=== PATIENT | male | born 1945 | race Caucasian/White ===

== ENCOUNTER → 2023-07-20 09:53 | Outpatient (REF) | payer MEDICARE, BC, SELFPAY ==
[2023-07-20 10:07] LABS: % Basophils 0.3 % (0-2); % Eosinophils 2.3 % (0-6); % Immature Granulocytes 0.1 % (0-0.5); % Lymphocytes 18.6 % (20.5-51.1); % Monocytes 5.1 % (1.7-9.3); % Neutrophils 73.6 % (42.2-75.2); Absolute Eosinophils 0.2 10^3/uL (0-0.7); Absolute Lymphocytes 1.4 10^3/uL (1.2-3.4); Absolute Monocytes 0.4 10^3/uL (0.1-0.6); Absolute Neutrophils 5.3 10^3/uL (1.4-6.5); Hematocrit 44.7 % (39.0-52.0); Hemoglobin 15.1 g/dL (13.0-18.0); Mean Corp Hgb Conc. 33.8 g/dL (33.0-37.0); Mean Corpuscular Hgb 32.6 pg (27.0-31.0); Mean Corpuscular Volume 96.5 fL (80.0-94.0); Mean Platelet Volume 11.4 fL (7.4-10.4); Platelet Count 173 10^3/uL (130-400); Red Blood Cell Count 4.63 10^6/uL (4.70-6.10); White Blood Cell Count 7.3 10^3/uL (4.8-10.8)
[2023-07-20 11:43] LABS: Iron 126 ug/dl (49-181)
[2023-07-20 11:53] LABS: Percent Saturation 39 % (20-50); Total Iron Binding Capacity 321 ug/dl (261-462)
[2023-07-20 12:19] LABS: Ferritin 59.4 ng/ml (17.9-464.0)
== END ==
LOC: OIDL 09:53
PROVIDERS: ATTENDING PHYSICIAN Internal Medicine Hematology & Oncology
DX: E83.110 Hereditary hemochromatosis (principal); E83.119 Hemochromatosis, unspecified
CPT/HCPCS: 36415; 82728; 83540; 83550; 85025

== ENCOUNTER 2023-08-02 09:12 | Outpatient (RCR) | payer MEDICARE, BC, SELFPAY ==
[2023-08-02 09:39] VITALS: BP 147/77
[2023-08-02 09:57] VITALS: BP 136/79
[2023-08-02 10:00] VITALS: BP 152/74
== END 2023-08-03 09:27 | disposition home or self-care (01) ==
LOC: OID 09:12
PROVIDERS: ATTENDING PHYSICIAN Internal Medicine Hematology & Oncology; FAMILY PHYSICIAN Internal Medicine
DX: E83.110 Hereditary hemochromatosis (principal)
CPT/HCPCS: 99195

== ENCOUNTER → 2023-10-12 10:00 | Outpatient (REF) | payer MEDICARE, BC, SELFPAY ==
[2023-10-12 10:12] LABS: % Basophils 0.4 % (0-2); % Eosinophils 1.5 % (0-6); % Immature Granulocytes 0.1 % (0-0.5); % Lymphocytes 22.5 % (20.5-51.1); % Neutrophils 66.5 % (42.2-75.2); Absolute Eosinophils 0.1 10^3/uL (0-0.7); Absolute Lymphocytes 1.6 10^3/uL (1.2-3.4); Absolute Monocytes 0.7 10^3/uL (0.1-0.6); Absolute Neutrophils 4.8 10^3/uL (1.4-6.5); Hematocrit 44.8 % (39.0-52.0); Hemoglobin 14.9 g/dL (13.0-18.0); Mean Corp Hgb Conc. 33.3 g/dL (33.0-37.0); Mean Corpuscular Hgb 32.4 pg (27.0-31.0); Mean Corpuscular Volume 97.4 fL (80.0-94.0); Mean Platelet Volume 11.2 fL (7.4-10.4); Platelet Count 190 10^3/uL (130-400); White Blood Cell Count 7.2 10^3/uL (4.8-10.8)
[2023-10-12 11:07] LABS: Iron 135 ug/dl (49-181)
[2023-10-12 11:16] LABS: Percent Saturation 42 % (20-50); Total Iron Binding Capacity 316 ug/dl (261-462)
[2023-10-12 11:41] LABS: Ferritin 68.4 ng/ml (17.9-464.0)
== END ==
LOC: OIDL 10:00
PROVIDERS: ATTENDING PHYSICIAN Internal Medicine Hematology & Oncology; FAMILY PHYSICIAN Internal Medicine
DX: E83.110 Hereditary hemochromatosis (principal); E83.119 Hemochromatosis, unspecified; K80.20 Calculus of gallbladder without cholecystitis without obstruction
CPT/HCPCS: 36415; 82728; 83540; 83550; 85025

== ENCOUNTER 2023-10-25 09:16 | Outpatient (RCR) | payer MEDICARE, BC, SELFPAY ==
[2023-10-25 09:26] VITALS: BP 160/85
[2023-10-25 10:12] VITALS: BP 136/76
[2023-10-25 10:14] VITALS: BP 121/89
== END 2023-10-26 09:23 | disposition home or self-care (01) ==
LOC: OID 09:16
PROVIDERS: ATTENDING PHYSICIAN Internal Medicine Hematology & Oncology; FAMILY PHYSICIAN Internal Medicine
DX: E83.110 Hereditary hemochromatosis (principal)
CPT/HCPCS: 99195

== ENCOUNTER → 2023-11-22 14:02 | Outpatient (REF) | payer MEDICARE, BC, SELFPAY | LOC: HWRCS 14:02 | PROVIDERS: ATTENDING PHYSICIAN Internal Medicine; FAMILY PHYSICIAN Internal Medicine | DX: R06.02 Shortness of breath (principal) | CPT/HCPCS: 93306 ==

== ENCOUNTER → 2023-11-23 09:20 | Outpatient (REF) | payer MEDICARE, BC, SELFPAY ==
[2023-11-23 13:54] LABS: ALT (SGPT) 22 U/L (0-50); AST (SGOT) 24 U/L (17-59); Albumin 4.3 g/dl (3.5-5.0); Alkaline Phosphatase 85 U/L (38-126); Blood Urea Nitrogen 20 mg/dl (9-20); Carbon Dioxide 25 mmol/L (22-30); Chloride 107 mmol/L (98-107); Glucose 90 mg/dl (70-99); Potassium 4.1 mmol/L (3.5-5.1); Sodium 141 mmol/L (135-145); Total Bilirubin 0.5 mg/dl (0.2-1.3); Total Protein 7.1 g/dl (6.3-8.2); eGFR > 60.00
[2023-11-24 10:54] LABS: H. pylori Breath Test Negative (Negative)
== END ==
LOC: REG 09:20
PROVIDERS: ATTENDING PHYSICIAN Internal Medicine Gastroenterology
DX: R19.4 Change in bowel habit (principal); E83.119 Hemochromatosis, unspecified; A04.8 Other specified bacterial intestinal infections
CPT/HCPCS: 36415; 74018; 80053; 83013

== ENCOUNTER → 2023-11-29 09:18 | Outpatient (REF) | payer MEDICARE, BC, SELFPAY ==
[2023-12-01 00:31] LABS: H. pylori Antigen, Fecal Negative (Negative)
== END ==
LOC: REG 09:18
PROVIDERS: ATTENDING PHYSICIAN Internal Medicine Gastroenterology; FAMILY PHYSICIAN Internal Medicine
DX: E83.119 Hemochromatosis, unspecified (principal); A04.8 Other specified bacterial intestinal infections
CPT/HCPCS: 36415; 87338

== ENCOUNTER → 2024-01-11 09:57 | Outpatient (REF) | payer MEDICARE, BC, SELFPAY ==
[2024-01-11 10:46] LABS: % Basophils 0.6 % (0-2); % Eosinophils 3.5 % (0-6); % Immature Granulocytes 0.2 % (0-0.5); % Lymphocytes 20.2 % (20.5-51.1); % Monocytes 6.8 % (1.7-9.3); % Neutrophils 68.7 % (42.2-75.2); Absolute Eosinophils 0.2 10^3/uL (0-0.7); Absolute Lymphocytes 1.3 10^3/uL (1.2-3.4); Absolute Monocytes 0.4 10^3/uL (0.1-0.6); Absolute Neutrophils 4.3 10^3/uL (1.4-6.5); Hematocrit 44.3 % (39.0-52.0); Hemoglobin 15.1 g/dL (13.0-18.0); Mean Corp Hgb Conc. 34.1 g/dL (33.0-37.0); Mean Corpuscular Hgb 32.8 pg (27.0-31.0); Mean Corpuscular Volume 96.1 fL (80.0-94.0); Mean Platelet Volume 11.3 fL (7.4-10.4); Platelet Count 163 10^3/uL (130-400); Red Blood Cell Count 4.61 10^6/uL (4.70-6.10); Red Cell Dist. Width 12.8 % (11.5-14.5); White Blood Cell Count 6.3 10^3/uL (4.8-10.8)
[2024-01-11 12:07] LABS: Erythrocyte Sed Rate 12 mm/hour (0-20)
[2024-01-11 12:11] LABS: Urine Albumin Negative (Neg - Trace); Urine Bilirubin Negative (Negative); Urine Character Clear (Clear); Urine Color Yellow; Urine Glucose Negative (Negative); Urine Ketone Negative (Negative); Urine Leukocyte Negative (Negative); Urine Nitrite Negative (Negative); Urine Occult Blood Negative (Negative); Urine Specific Gravity 1.015 (<1.030); Urine Urobilinogen Negative (Neg - 1+)
[2024-01-11 13:06] LABS: C-Reactive Protein < 5.00 mg/L (0.0-10.00)
[2024-01-11 13:23] LABS: Vitamin D, 25-OH*** 74.4 ng/mL (30-80)
[2024-01-11 13:26] LABS: Glycohemoglobin (HgbA1c) 5.6 % (4.0-5.6)
[2024-01-11 13:37] LABS: TSH Reflex To Free T4 1.94 uIU/ml (0.47-4.68)
[2024-01-11 13:41] LABS: Ferritin 68.5 ng/ml (17.9-464.0)
[2024-01-11 13:56] LABS: Vitamin B12 532 pg/ml (239-931)
[2024-01-11 17:31] LABS: ALT (SGPT) 21 U/L (0-50); Chloride 107 mmol/L (98-107); Sodium 139 mmol/L (135-145)
[2024-01-11 20:34] LABS: AST (SGOT) 26 U/L (17-59); Albumin 4.5 g/dl (3.5-5.0); Alkaline Phosphatase 86 U/L (38-126); Blood Urea Nitrogen 21 mg/dl (9-20); Calcium 10.1 mg/dl (8.4-10.2); Carbon Dioxide 19 mmol/L (22-30); Glucose 85 mg/dl (70-99); HDL Cholesterol 47 mg/dl; Iron 131 ug/dl (49-181); LDL Cholesterol, Calculated 106 mg/dl; Magnesium 2.1 mg/dl (1.6-2.3); Potassium 4.3 mmol/L (3.5-5.1); Total Bilirubin 0.5 mg/dl (0.2-1.3); Total Cholesterol 168 mg/dl (50-199); Total Protein 7.1 g/dl (6.3-8.2); Triglyceride 76 mg/dl (10-149); Very Low Density Lipoprotein 15 mg/dl (0-30); eGFR > 60.00
[2024-01-11 20:44] LABS: Percent Saturation 43 % (20-50); Total Iron Binding Capacity 302 ug/dl (261-462)
[2024-01-14 07:05] LABS: Magnesium, RBC's Result 5.7 mg/dL (3.6-7.5)
== END ==
LOC: OIDL 09:57
PROVIDERS: ATTENDING PHYSICIAN Internal Medicine Hematology & Oncology; OTHER PHYSICIAN Internal Medicine
DX: E83.110 Hereditary hemochromatosis (principal); E83.119 Hemochromatosis, unspecified; K80.20 Calculus of gallbladder without cholecystitis without obstruction; E11.9 Type 2 diabetes mellitus without complications; D51.8 Other vitamin B12 deficiency anemias; E55.9 Vitamin D deficiency, unspecified
CPT/HCPCS: 36415; 80053; 80061; 81003; 82306; 82607; 82728; 83036; 83540; 83550; 83735; 84443; 85025; 85652; 86140

== ENCOUNTER 2024-01-30 10:01 | Outpatient (RCR) | payer MEDICARE, BC, SELFPAY ==
[2024-01-23 09:40] VITALS: BP 147/75
--- NOTE | 2024-01-23 10:17 | PTCARENOTE ---
Phlebotomy held and rescheduled due to unsuccessful attempts x3, two by Radha Brandon RN and one by Shantelle Dey RN. Encouraged patient to drink excess fluids and eat a full meal prior to next attempt. Patient verbalized understanding. Patient
said will have to call and reschedule after looking at calendar.
[2024-01-30 10:15] VITALS: BP 153/78
[2024-01-30 10:25] VITALS: BP 160/81
[2024-01-30 10:30] VITALS: BP 150/89
== END 2024-01-31 13:40 | disposition home or self-care (01) ==
LOC: OID 10:01
PROVIDERS: ATTENDING PHYSICIAN Internal Medicine Hematology & Oncology; FAMILY PHYSICIAN Internal Medicine
DX: E83.110 Hereditary hemochromatosis (principal)
CPT/HCPCS: 99195

== ENCOUNTER → 2024-04-04 10:22 | Outpatient (REF) | payer MEDICARE, BC, SELFPAY ==
[2024-04-04 13:19] LABS: Blood Urea Nitrogen 19 mg/dl (9-20)
== END ==
LOC: HWLAB 10:22
PROVIDERS: ATTENDING PHYSICIAN Nurse Practitioner Family
DX: R10.10 Upper abdominal pain, unspecified (principal)
CPT/HCPCS: 36415; 82565; 84520

== ENCOUNTER → 2024-04-09 07:42 | Outpatient (REF) | payer MEDICARE, BC, SELFPAY | LOC: RAD 07:42 | PROVIDERS: ATTENDING PHYSICIAN Nurse Practitioner Family; FAMILY PHYSICIAN Internal Medicine | DX: R10.10 Upper abdominal pain, unspecified (principal) | CPT/HCPCS: 74177; Q9967 ==

== ENCOUNTER → 2024-04-16 09:59 | Outpatient (REF) | payer MEDICARE, BC, SELFPAY ==
[2024-04-16 10:16] LABS: % Basophils 0.3 % (0-2); % Eosinophils 1.2 % (0-6); % Immature Granulocytes 0.2 % (0-0.5); % Lymphocytes 21.4 % (20.5-51.1); % Monocytes 6.7 % (1.7-9.3); % Neutrophils 70.2 % (42.2-75.2); Absolute Eosinophils 0.1 10^3/uL (0-0.7); Absolute Lymphocytes 1.4 10^3/uL (1.2-3.4); Absolute Monocytes 0.4 10^3/uL (0.1-0.6); Absolute Neutrophils 4.5 10^3/uL (1.4-6.5); Hematocrit 43.8 % (39.0-52.0); Hemoglobin 14.8 g/dL (13.0-18.0); Mean Corp Hgb Conc. 33.8 g/dL (33.0-37.0); Mean Corpuscular Volume 97.8 fL (80.0-94.0); Mean Platelet Volume 11.1 fL (7.4-10.4); Platelet Count 177 10^3/uL (130-400); Red Blood Cell Count 4.48 10^6/uL (4.70-6.10); Red Cell Dist. Width 12.9 % (11.5-14.5); White Blood Cell Count 6.4 10^3/uL (4.8-10.8)
[2024-04-16 12:13] LABS: Iron 80 ug/dl (49-181)
[2024-04-16 12:22] LABS: Percent Saturation 24 % (20-50); Total Iron Binding Capacity 321 ug/dl (261-462)
== END ==
LOC: OIDL 09:59
PROVIDERS: ATTENDING PHYSICIAN Internal Medicine Hematology & Oncology; PRIMARYCARE PHYSICIAN Internal Medicine
DX: E83.110 Hereditary hemochromatosis (principal); E83.119 Hemochromatosis, unspecified; K80.20 Calculus of gallbladder without cholecystitis without obstruction; E11.9 Type 2 diabetes mellitus without complications; D51.8 Other vitamin B12 deficiency anemias; E55.9 Vitamin D deficiency, unspecified
CPT/HCPCS: 36415; 82728; 83540; 83550; 85025

== ENCOUNTER 2024-04-23 09:13 | Outpatient (RCR) | payer MEDICARE, BC, SELFPAY ==
[2024-04-23 09:23] VITALS: BP 158/89
[2024-04-23 09:52] VITALS: BP 141/87
[2024-04-23 10:17] VITALS: BP 155/88
== END 2024-04-24 10:02 | disposition home or self-care (01) ==
LOC: OID 09:13
PROVIDERS: ATTENDING PHYSICIAN Internal Medicine Hematology & Oncology; FAMILY PHYSICIAN Internal Medicine
DX: E83.110 Hereditary hemochromatosis (principal)
CPT/HCPCS: 99195

== ENCOUNTER → 2024-07-16 09:58 | Outpatient (REF) | payer MEDICARE, BC, SELFPAY ==
[2024-07-16 10:55] LABS: % Basophils 0.6 % (0-2); % Eosinophils 1.7 % (0-6); % Lymphocytes 20.2 % (20.5-51.1); % Monocytes 6.7 % (1.7-9.3); % Neutrophils 70.8 % (42.2-75.2); Absolute Eosinophils 0.1 10^3/uL (0-0.7); Absolute Lymphocytes 1.5 10^3/uL (1.2-3.4); Absolute Monocytes 0.5 10^3/uL (0.1-0.6); Absolute Neutrophils 5.1 10^3/uL (1.4-6.5); Hematocrit 44.7 % (39.0-52.0); Hemoglobin 14.8 g/dL (13.0-18.0); Mean Corp Hgb Conc. 33.1 g/dL (33.0-37.0); Mean Corpuscular Hgb 31.9 pg (27.0-31.0); Mean Corpuscular Volume 96.3 fL (80.0-94.0); Mean Platelet Volume 10.7 fL (7.4-10.4); Platelet Count 181 10^3/uL (130-400); Red Blood Cell Count 4.64 10^6/uL (4.70-6.10); Red Cell Dist. Width 13.1 % (11.5-14.5); White Blood Cell Count 7.2 10^3/uL (4.8-10.8)
[2024-07-16 12:04] LABS: Urine Albumin Negative (Neg - Trace); Urine Bilirubin Negative (Negative); Urine Character Clear (Clear); Urine Color Yellow; Urine Glucose Negative (Negative); Urine Ketone Negative (Negative); Urine Leukocyte Negative (Negative); Urine Nitrite Negative (Negative); Urine Occult Blood Negative (Negative); Urine Urobilinogen Negative (Neg - 1+)
[2024-07-16 12:16] LABS: Erythrocyte Sed Rate 10 mm/hour (0-20)
[2024-07-16 12:21] LABS: ALT (SGPT) 24 U/L (0-50); AST (SGOT) 23 U/L (17-59); Albumin 4.8 g/dl (3.5-5.0); Alkaline Phosphatase 94 U/L (38-126); Blood Urea Nitrogen 16 mg/dl (9-20); Calcium 9.9 mg/dl (8.4-10.2); Carbon Dioxide 26 mmol/L (22-30); Chloride 105 mmol/L (98-107); Glucose 87 mg/dl (70-99); HDL Cholesterol 51 mg/dl; Iron 92 ug/dl (49-181); Magnesium 2.2 mg/dl (1.6-2.3); Potassium 4.4 mmol/L (3.5-5.1); Sodium 142 mmol/L (135-145); Total Bilirubin 0.7 mg/dl (0.2-1.3); Total Protein 7.5 g/dl (6.3-8.2); Triglyceride 75 mg/dl (10-149); Very Low Density Lipoprotein 15 mg/dl (0-30); eGFR > 60.00
[2024-07-16 12:26] LABS: C-Reactive Protein < 5.00 mg/L (0.0-10.00)
[2024-07-16 12:36] LABS: LDL Cholesterol, Calculated 124 mg/dl; Total Cholesterol 190 mg/dl (50-199)
[2024-07-16 12:41] LABS: Percent Saturation 27 % (20-50); Total Iron Binding Capacity 329 ug/dl (261-462)
[2024-07-16 12:44] LABS: Glycohemoglobin (HgbA1c) 5.6 % (4.0-5.6)
[2024-07-16 12:49] LABS: Free T4 1.02 ng/dl (0.78-2.19); Total Thyroxine 6.56 ug/dl (5.5-11.0); Vitamin D, 25-OH*** 85.3 ng/mL (30-80)
[2024-07-16 13:02] LABS: TSH 2.78 uIU/ml (0.47-4.68)
[2024-07-16 13:22] LABS: Vitamin B12 539 pg/ml (239-931)
== END ==
LOC: OIDL 09:58
PROVIDERS: ATTENDING PHYSICIAN Internal Medicine Hematology & Oncology; OTHER PHYSICIAN Internal Medicine
DX: E83.110 Hereditary hemochromatosis (principal); E83.119 Hemochromatosis, unspecified; K80.20 Calculus of gallbladder without cholecystitis without obstruction; E11.9 Type 2 diabetes mellitus without complications; D51.8 Other vitamin B12 deficiency anemias; E55.9 Vitamin D deficiency, unspecified; E78.2 Mixed hyperlipidemia; E03.9 Hypothyroidism, unspecified; R35.0 Frequency of micturition
CPT/HCPCS: 36415; 80053; 80061; 81003; 82306; 82607; 82728; 83036; 83540; 83550; 83735; 84436; 84439; 84443; 85025; 85652; 86140; 87086

== ENCOUNTER 2024-09-09 09:17 | Outpatient (RCR) | payer MEDICARE, BC, SELFPAY | END 2024-09-09 23:59 | disposition home or self-care (01) | LOC: RPT 09:17 | PROVIDERS: ATTENDING PHYSICIAN Internal Medicine Gastroenterology; FAMILY PHYSICIAN Internal Medicine | DX: M62.89 Other specified disorders of muscle (principal); Z73.6 Limitation of activities due to disability | CPT/HCPCS: 97161; 97530 ==

== ENCOUNTER 2024-10-03 16:29 | Outpatient (RCR) | payer MEDICARE, BC, SELFPAY | END 2024-10-03 23:59 | disposition home or self-care (01) | LOC: RPT 16:29 | PROVIDERS: ATTENDING PHYSICIAN Internal Medicine Gastroenterology; FAMILY PHYSICIAN Internal Medicine | DX: M62.89 Other specified disorders of muscle (principal); Z73.6 Limitation of activities due to disability | CPT/HCPCS: 97110; 97530 ==

== ENCOUNTER 2024-10-11 09:38 | Outpatient (RCR) | payer MEDICARE, BC, SELFPAY | END 2024-10-11 23:59 | disposition home or self-care (01) | LOC: RPT 09:38 | PROVIDERS: ATTENDING PHYSICIAN Internal Medicine Gastroenterology; FAMILY PHYSICIAN Internal Medicine | DX: M62.89 Other specified disorders of muscle (principal); Z73.6 Limitation of activities due to disability | CPT/HCPCS: 97110; 97140 ==

== ENCOUNTER → 2024-10-17 10:05 | Outpatient (REF) | payer MEDICARE, BC, SELFPAY ==
[2024-10-17 10:34] LABS: % Basophils 0.5 % (0-2); % Eosinophils 1.8 % (0-6); % Immature Granulocytes 0.2 % (0-0.5); % Monocytes 6.5 % (1.7-9.3); Absolute Eosinophils 0.1 10^3/uL (0-0.7); Absolute Lymphocytes 1.4 10^3/uL (1.2-3.4); Absolute Monocytes 0.4 10^3/uL (0.1-0.6); Absolute Neutrophils 4.6 10^3/uL (1.4-6.5); Hematocrit 41.5 % (39.0-52.0); Mean Corp Hgb Conc. 33.7 g/dL (33.0-37.0); Mean Corpuscular Hgb 32.6 pg (27.0-31.0); Mean Corpuscular Volume 96.5 fL (80.0-94.0); Mean Platelet Volume 11.2 fL (7.4-10.4); Platelet Count 172 10^3/uL (130-400); White Blood Cell Count 6.5 10^3/uL (4.8-10.8)
[2024-10-17 11:25] LABS: Iron 84 ug/dl (49-181)
[2024-10-17 11:34] LABS: Percent Saturation 28 % (20-50); Total Iron Binding Capacity 290 ug/dl (261-462)
[2024-10-17 12:33] LABS: Ferritin 96.5 ng/ml (17.9-464.0)
== END ==
LOC: OIDL 10:05
PROVIDERS: ATTENDING PHYSICIAN Internal Medicine Hematology & Oncology; FAMILY PHYSICIAN Internal Medicine
DX: E83.110 Hereditary hemochromatosis (principal); E83.119 Hemochromatosis, unspecified; K80.20 Calculus of gallbladder without cholecystitis without obstruction; E11.9 Type 2 diabetes mellitus without complications; D51.8 Other vitamin B12 deficiency anemias; E55.9 Vitamin D deficiency, unspecified; E78.2 Mixed hyperlipidemia; E03.9 Hypothyroidism, unspecified; R35.0 Frequency of micturition
CPT/HCPCS: 36415; 82728; 83540; 83550; 85025

== ENCOUNTER 2024-10-23 10:44 | Outpatient (RCR) | payer MEDICARE, BC, SELFPAY ==
[2024-10-23 10:56] VITALS: BP 172/94
[2024-10-23 11:32] VITALS: BP 158/91
[2024-10-23 11:35] VITALS: BP 147/88
== END 2024-11-09 23:59 | disposition home or self-care (01) ==
LOC: OID 10:44
PROVIDERS: ATTENDING PHYSICIAN Nurse Practitioner Adult Health; FAMILY PHYSICIAN Internal Medicine
DX: E83.110 Hereditary hemochromatosis (principal)
CPT/HCPCS: 99195

== ENCOUNTER 2024-11-14 18:12 | Outpatient (RCR) | payer MEDICARE, BC, SELFPAY | END 2024-11-15 07:24 | disposition home or self-care (01) | LOC: RPT 18:12 | PROVIDERS: ATTENDING PHYSICIAN Internal Medicine Gastroenterology; FAMILY PHYSICIAN Internal Medicine | DX: M62.89 Other specified disorders of muscle (principal); Z73.6 Limitation of activities due to disability | CPT/HCPCS: 97110 ==

== ENCOUNTER → 2025-01-16 09:54 | Outpatient (REF) | payer MEDICARE, BC, SELFPAY ==
[2025-01-16 10:35] LABS: Hematocrit 43.9 % (39.0-52.0); Hemoglobin 14.5 g/dL (13.0-18.0); Mean Corp Hgb Conc. 33.0 g/dL (33.0-37.0); Mean Corpuscular Volume 96.5 fL (80.0-94.0); Platelet Count 177 10^3/uL (130-400); Red Cell Dist. Width 12.8 % (11.5-14.5)
[2025-01-16 11:51] LABS: Urine Character Clear (Clear)
[2025-01-16 12:16] LABS: Iron 98 ug/dl (49-181)
[2025-01-16 12:20] LABS: C-Reactive Protein < 5.00 mg/L (0.0-10.00)
[2025-01-16 12:25] LABS: ALT (SGPT) 23 U/L (0-50); AST (SGOT) 24 U/L (17-59); Albumin 4.5 g/dl (3.5-5.0); Alkaline Phosphatase 74 U/L (38-126); Blood Urea Nitrogen 17 mg/dl (9-20); Calcium 9.6 mg/dl (8.4-10.2); Carbon Dioxide 27 mmol/L (22-30); Chloride 106 mmol/L (98-107); Glucose 82 mg/dl (70-99); HDL Cholesterol 51 mg/dl; Iron 121 ug/dl (49-181); LDL Cholesterol, Calculated 129 mg/dl; Potassium 4.4 mmol/L (3.5-5.1); Sodium 141 mmol/L (135-145); Total Protein 7.4 g/dl (6.3-8.2); Very Low Density Lipoprotein 14 mg/dl (0-30); eGFR > 60.00
[2025-01-16 12:26] LABS: Total Iron Binding Capacity 319 ug/dl (261-462)
[2025-01-16 12:35] LABS: Total Iron Binding Capacity 324 ug/dl (261-462)
[2025-01-16 12:48] LABS: PSA, Total - Diagnostic 2.05 ng/ml (0.0-4.0)
[2025-01-16 12:52] LABS: Ferritin 60.9 ng/ml (17.9-464.0)
[2025-01-16 12:53] LABS: TSH 2.07 uIU/ml (0.47-4.68)
[2025-01-16 13:04] LABS: Ferritin 62.0 ng/ml (17.9-464.0)
[2025-01-16 13:26] LABS: Folate > 20.0 ng/ml (2.76-20); Vitamin B12 641 pg/ml (239-931)
[2025-01-16 14:30] LABS: Glycohemoglobin (HgbA1c) 5.7 % (4.0-5.6)
[2025-01-16 20:45] LABS: Uric Acid 4.5 mg/dl (3.5-8.5)
== END ==
LOC: OIDL 09:54
PROVIDERS: Nurse Practitioner Adult Health; ATTENDING PHYSICIAN Internal Medicine Hematology & Oncology; FAMILY PHYSICIAN Internal Medicine
DX: E83.110 Hereditary hemochromatosis (principal); E83.119 Hemochromatosis, unspecified; K80.20 Calculus of gallbladder without cholecystitis without obstruction; E11.9 Type 2 diabetes mellitus without complications; D51.8 Other vitamin B12 deficiency anemias; E55.9 Vitamin D deficiency, unspecified; E78.2 Mixed hyperlipidemia; E03.9 Hypothyroidism, unspecified; R35.0 Frequency of micturition; I10 Essential (primary) hypertension; D64.9 Anemia, unspecified; N40.0 Benign prostatic hyperplasia without lower urinary tract symptoms
CPT/HCPCS: 36415; 80053; 80061; 81003; 82607; 82652; 82728; 82746; 82784; 83036; 83516; 83540; 83550; 83921; 84153; 84439; 84443; 84550; 85025; 85652; 86140; 86231; 87086

== ENCOUNTER 2025-02-03 10:48 | Outpatient (RCR) | payer MEDICARE, BC, SELFPAY ==
[2025-02-03 11:41] VITALS: BP 153/81
[2025-02-03 12:26] VITALS: BP 152/83
== END 2025-02-09 23:59 | disposition home or self-care (01) ==
LOC: OID 10:48
PROVIDERS: ATTENDING PHYSICIAN Internal Medicine Hematology & Oncology
DX: E83.110 Hereditary hemochromatosis (principal)
CPT/HCPCS: 99195

== ENCOUNTER → 2025-02-07 11:10 | Outpatient (REF) | payer MEDICARE, BC, SELFPAY | LOC: HWRCS 11:10 | PROVIDERS: ATTENDING PHYSICIAN Internal Medicine; FAMILY PHYSICIAN Internal Medicine | DX: R07.89 Other chest pain (principal) | CPT/HCPCS: 78452; 93017; A9500; J2785 ==

== ENCOUNTER → 2025-04-17 10:01 | Outpatient (REF) | payer MEDICARE, BC, SELFPAY ==
[2025-04-17 10:17] LABS: Hematocrit 44.3 % (39.0-52.0); Hemoglobin 14.6 g/dL (13.0-18.0); Mean Corp Hgb Conc. 33.0 g/dL (33.0-37.0); Mean Corpuscular Volume 98.0 fL (80.0-94.0); Platelet Count 181 10^3/uL (130-400); Red Cell Dist. Width 13.0 % (11.5-14.5)
[2025-04-17 11:14] LABS: Iron 96 ug/dl (49-181)
[2025-04-17 11:25] LABS: Total Iron Binding Capacity 317 ug/dl (261-462)
[2025-04-17 12:42] LABS: Ferritin 65.2 ng/ml (17.9-464.0)
== END ==
LOC: OIDL 10:01
PROVIDERS: ATTENDING PHYSICIAN Internal Medicine Hematology & Oncology; FAMILY PHYSICIAN Internal Medicine
DX: E83.110 Hereditary hemochromatosis (principal); E83.119 Hemochromatosis, unspecified; K80.20 Calculus of gallbladder without cholecystitis without obstruction; E11.9 Type 2 diabetes mellitus without complications; D51.8 Other vitamin B12 deficiency anemias; E55.9 Vitamin D deficiency, unspecified; E78.2 Mixed hyperlipidemia; E03.9 Hypothyroidism, unspecified; R35.0 Frequency of micturition; I10 Essential (primary) hypertension; D64.9 Anemia, unspecified; N40.0 Benign prostatic hyperplasia without lower urinary tract symptoms
CPT/HCPCS: 36415; 82728; 83540; 83550; 85025

== ENCOUNTER 2025-04-23 10:42 | Outpatient (RCR) | payer MEDICARE, BC, SELFPAY ==
[2025-04-23 11:02] VITALS: BP 151/78
[2025-04-23 11:36] VITALS: BP 145/73
[2025-04-23 11:40] VITALS: BP 143/76
== END 2025-05-11 23:59 | disposition home or self-care (01) ==
LOC: OID 10:42
PROVIDERS: ATTENDING PHYSICIAN Internal Medicine Hematology & Oncology; FAMILY PHYSICIAN Internal Medicine
DX: E83.110 Hereditary hemochromatosis (principal)
CPT/HCPCS: 99195